=== PATIENT | female | born 1965 | race Caucasian/White ===

== ENCOUNTER 2018-04-09 08:14 | Day surgery (SDC) | payer OTHER ==
[2018-04-09] MEDS ORDERED: FENTAnyl 50 MCG/ML VIAL (11:15)
[2018-04-09] MEDS ORDERED: MIDAZOLAM 1 MG/ML 2 ML INJ ×3 (11:15)
== END 2018-04-09 12:11 | disposition home or self-care (01) ==
LOC: GIL 08:14
DX: Z12.11 Encounter for screening for malignant neoplasm of colon (principal); K29.50 Unspecified chronic gastritis without bleeding; K64.8 Other hemorrhoids; K44.9 Diaphragmatic hernia without obstruction or gangrene; K21.9 Gastro-esophageal reflux disease without esophagitis
CPT/HCPCS: 43239; 88305; 88312